=== PATIENT | male | born 1995 | race Hispanic/Latino ===

== ENCOUNTER 2018-08-01 02:13 | Emergency (ER) | payer OTHER ==
[~2018-08-01] VITALS: Ht 160 cm; Wt 60.0 kg
[2018-08-01] MEDS ORDERED: ULTRAM50 M1 PO (03:51)
[2018-08-01] MEDS ORDERED: AMOXICILLIN500 MG PO (03:51)
[2018-08-01 04:05] VITALS: BP 138/68
== END 2018-08-01 04:05 | disposition home or self-care (01) | DRG 605 ==
LOC: ED 02:13
PROC: 0HQ0XZZ Repair Scalp Skin, External Approach (ICD-10-PCS; principal; 2018-08-01)
DX: S01.01XA Laceration without foreign body of scalp, initial encounter (principal); S00.01XA Abrasion of scalp, initial encounter; S00.511A Abrasion of lip, initial encounter; S00.81XA Abrasion of other part of head, initial encounter; S60.511A Abrasion of right hand, initial encounter; V47.5XXA Car driver injured in collision with fixed or stationary object in traffic accident, initial encounter; Y92.410 Unspecified street and highway as the place of occurrence of the external cause